=== PATIENT | male | born 1970 | race Caucasian/White ===

== ENCOUNTER 2017-07-21 00:25 | Inpatient (IN) | payer OTHER ==
[~2017-07-21] VITALS: Ht 170.2 cm; Wt 142.6 kg
[2017-07-21] VITALS (8 sets, daily range): BP systolic 131–162; BP diastolic 56–90
[~2017-07-21 00:25] MED LIST: LEVAQUIN750 MG PO
[2017-07-21 00:43] LABS: HEMOGLOBIN 15.7 G/DL (12.5-16.6); MCH 29.8 PG (29.0-34.0); MCHC 34.1 G/DL (30.0-36.0); MCV 87.3 FL (86-99); PLATELET COUNT 173 K/uL (156-360); RBC DIS.WIDTH-CV 12.9 % (11.8-14.6); RBC DIS.WIDTH-SD 40.2 % (39-53); RED BLOOD COUNT 5.27 M/uL (4.00-5.50)
[2017-07-21 00:53] LABS: CHLORIDE 100 mEq/L (99-109); SODIUM 138 mEq/L (136-147)
[2017-07-21 00:55] LABS: GLUCOSE 221 mg/dL (70-99)
[2017-07-21 00:59] LABS: CREATININE 1.2 mg/dL (0.6-1.3); GFR ESTIMATE (CALCULATED) > 59 mL/min/ (58.99-99999)
[2017-07-21 01:00] LABS: UREA NITROGEN (BUN) 15 mg/dL (9-23)
[2017-07-21 01:04] LABS: TROP-I INTERPRETATION NEGATIVE; TROPONIN-I 0.19 ng/mL (0.0-0.30)
[2017-07-21 04:02] LABS: ALBUMIN 3.9 g/dL (3.2-4.8)
[2017-07-21 04:05] LABS: TOTAL PROTEIN 7.4 g/dL (6.4-8.3)
[2017-07-21 04:07] LABS: TOTAL BILIRUBIN 0.4 mg/dL (0.0-1.0)
[2017-07-21 04:08] LABS: ALKALINE PHOSPHATASE 67 IU/L (3-129)
[2017-07-21 04:10] LABS: AST (GOT) 31 IU/L (2-34); D-DIMER ELISA < 150.00 ng/mLDDU (<230)
[2017-07-21 04:11] LABS: ALT (GPT) 44 IU/L (3-49); DIRECT BILIRUBIN 0.1 mg/dL (0.0-0.3); PTT 34.2 SEC (25-37)
[2017-07-21 04:12] LABS: LIPASE 32 U/L (1.0-51.0)
[2017-07-21 07:32] LABS: HEMATOCRIT 43.2 % (38.0-50.0); HEMOGLOBIN 14.6 G/DL (12.5-16.6); MCH 29.6 PG (29.0-34.0); MCHC 33.8 G/DL (30.0-36.0); MCV 87.4 FL (86-99); PLATELET COUNT 170 K/uL (156-360); RBC DIS.WIDTH-SD 40.9 % (39-53); RED BLOOD COUNT 4.94 M/uL (4.00-5.50); WHITE BLOOD COUNT 7.2 K/uL (4.1-10.2)
[2017-07-21 08:03] LABS: CHLORIDE 102 MEQ/L (99-109); GFR ESTIMATE (CALCULATED) > 59 mL/min/ (58.99-99999); GLUCOSE 161 mg/dL (70-99); SODIUM 136 MEQ/L (136-147); TROP-I INTERPRETATION POSITIVE; TROPONIN-I 1.42 ng/mL (0.0-0.30); UREA NITROGEN (BUN) 15 mg/dL (9-23)
[2017-07-21 08:08] LABS: POTASSIUM 5.1 MEQ/L (3.7-5.4)
[2017-07-21] MEDS ORDERED: TRESIBA FL100 UNIT/1 SC (08:14)
[2017-07-21] MEDS ORDERED: GLUCOPHAGE1000 MG PO (08:15)
[2017-07-21] MEDS ORDERED: LOTENSIN10 MG PO (08:15)
[2017-07-21] MEDS ORDERED: CRESTOR20 MG PO (08:15)
[2017-07-21 13:10] LABS: TROP-I INTERPRETATION POSITIVE
[2017-07-21 13:12] LABS: TROPONIN-I 2.92 ng/mL (0.0-0.30)
[2017-07-21 19:03] LABS: TROP-I INTERPRETATION POSITIVE
[2017-07-22] VITALS (7 sets, daily range): BP systolic 111–158; BP diastolic 51–86
[2017-07-23 03:00] VITALS: BP 106/41
[2017-07-23 05:54] LABS: HEMATOCRIT 42.1 % (38.0-50.0); MCH 29.2 PG (29.0-34.0); MCHC 33.3 G/DL (30.0-36.0); MCV 87.7 FL (86-99); PLATELET COUNT 165 K/uL (156-360); RBC DIS.WIDTH-CV 13.2 % (11.8-14.6); RBC DIS.WIDTH-SD 42.1 % (39-53); WHITE BLOOD COUNT 6.9 K/uL (4.1-10.2)
[2017-07-23 06:30] LABS: CHLORIDE 102 MEQ/L (99-109); CREATININE 0.9 MG/DL (0.6-1.3); GFR ESTIMATE (CALCULATED) > 59 mL/min/ (58.99-99999); GLUCOSE 151 mg/dL (70-99); MAGNESIUM 1.9 mg/dl (1.3-2.7); SODIUM 136 MEQ/L (136-147); UREA NITROGEN (BUN) 14 mg/dL (9-23)
[2017-07-23 07:07] VITALS: BP 148/79
[2017-07-23 11:19] VITALS: BP 150/71
[2017-07-23 12:59] VITALS: BP 135/67
[2017-07-23] MEDS ORDERED: NITROSTAT0.4 MG SL (14:19)
[2017-07-23] MEDS ORDERED: LOPRESSOR25 MG PO (14:20)
[2017-07-23] MEDS ORDERED: BRILINTA90 MG PO (14:20)
[2017-07-23] MEDS ORDERED: ATORVASTATIN CA40 MG PO (14:20)
[2017-07-23] MEDS ORDERED: ASPIR-LOW81 MG PO (14:20)
== END 2017-07-23 15:53 | disposition home or self-care (01) | DRG 247 ==
LOC: EME 00:25 → EDOF 03:19 → 4EAST 03:19 → ENRESERV 03:23 → 4WEST 14:50 → ENRESERV 17:18 → 4EAST 19:10 → ENPENDDIS 07-23 → 4EAST 07-23 15:53
PROVIDERS: Hospitalist; Internal Medicine
DX: I21.4 Non-ST elevation (NSTEMI) myocardial infarction (principal); I25.110 Atherosclerotic heart disease of native coronary artery with unstable angina pectoris; I25.82 Chronic total occlusion of coronary artery; I10 Essential (primary) hypertension; E11.65 Type 2 diabetes mellitus with hyperglycemia; E66.01 Morbid (severe) obesity due to excess calories; Z68.42 Body mass index [BMI] 45.0-49.9, adult; E78.5 Hyperlipidemia, unspecified; K21.9 Gastro-esophageal reflux disease without esophagitis; R11.0 Nausea; Z82.49 Family history of ischemic heart disease and other diseases of the circulatory system; Z87.891 Personal history of nicotine dependence
CPT/HCPCS: 71046; 80048; 80048 91; 80076; 82948; 83690; 83735; 84484; 85027; 85347; 85379; 85610; 85730; 87641; 93005; 93306; C1725; C1769; C1874; C1887; J1644; J1650; J1815; J2250; J3010; J7030

== ENCOUNTER 2017-07-25 01:29 | Observation (INO) | payer OTHER ==
[~2017-07-25] VITALS: Ht 172.7 cm; Wt 137.7 kg
[~2017-07-25 01:29] MED LIST changes: +ASPIR-LOW81 MG PO; +ATORVASTATIN CA40 MG PO; +BRILINTA90 MG PO; +CRESTOR20 MG PO; +GLUCOPHAGE1000 MG PO; +LOPRESSOR25 MG PO; +LOTENSIN10 MG PO; +NITROSTAT0.4 MG SL; +TRESIBA FL100 UNIT/1 SC
[2017-07-25 02:15] LABS: HEMATOCRIT 45.2 % (38.0-50.0); HEMOGLOBIN 15.3 G/DL (12.5-16.6); MCH 29.2 PG (29.0-34.0); MCHC 33.8 G/DL (30.0-36.0); MCV 86.3 FL (86-99); PLATELET COUNT 178 K/uL (156-360); RBC DIS.WIDTH-CV 13.2 % (11.8-14.6); RBC DIS.WIDTH-SD 40.6 % (39-53); RED BLOOD COUNT 5.24 M/uL (4.00-5.50)
[2017-07-25 02:24] LABS: CHLORIDE 103 mEq/L (99-109); POTASSIUM 4.3 mEq/L (3.7-5.4); SODIUM 134 mEq/L (136-147)
[2017-07-25 02:26] LABS: GLUCOSE 194 mg/dL (70-99)
[2017-07-25 02:30] LABS: CREATININE 1.1 mg/dL (0.6-1.3); GFR ESTIMATE (CALCULATED) > 59 mL/min/ (58.99-99999)
[2017-07-25 02:31] LABS: UREA NITROGEN (BUN) 14 mg/dL (9-23)
[2017-07-25 02:37] LABS: TROP-I INTERPRETATION POSITIVE
[2017-07-25 02:45] LABS: TROPONIN-I 1.06 ng/mL (0.0-0.30)
[2017-07-25 05:12] LABS: TOTAL PROTEIN 7.6 g/dL (6.4-8.3)
[2017-07-25 05:15] LABS: ALKALINE PHOSPHATASE 67 IU/L (3-129); TOTAL BILIRUBIN 0.7 mg/dL (0.0-1.0)
[2017-07-25 05:17] LABS: AST (GOT) 27 IU/L (2-34); DIRECT BILIRUBIN 0.3 mg/dL (0.0-0.3)
[2017-07-25 05:18] LABS: TROP-I INTERPRETATION POSITIVE
[2017-07-25 05:18] LABS: ALT (GPT) 40 IU/L (3-49); LIPASE 44 U/L (1.0-51.0)
[2017-07-25 05:49] LABS: TROPONIN-I 1.04 ng/mL (0.0-0.30)
[2017-07-25 06:16] LABS: INTER. NORMALIZED RATIO 1.2
[2017-07-25 06:18] LABS: PTT 32.4 SEC (25-37)
[2017-07-25] MEDS ORDERED: LISINOPRIL5 MG PO (11:04)
[2017-07-25 12:39] VITALS: BP 112/64
== END 2017-07-25 12:46 | disposition home or self-care (01) ==
LOC: EME 01:29 → ENRESERV 08:21 → CANRESERV 08:21 → EDOF 08:31 → ENRESERV 08:32 → CANRESERV 08:36 → ENRESERV 08:36 → CANRESERV 08:39 → ENRESERV 08:48 → CANRESERV 08:48 → EDOF 12:46
PROVIDERS: Emergency Medicine; Internal Medicine
DX: R07.9 Chest pain, unspecified (principal); R10.10 Upper abdominal pain, unspecified; E11.9 Type 2 diabetes mellitus without complications; E78.5 Hyperlipidemia, unspecified; I10 Essential (primary) hypertension; I25.10 Atherosclerotic heart disease of native coronary artery without angina pectoris; I21.4 Non-ST elevation (NSTEMI) myocardial infarction; Z95.5 Presence of coronary angioplasty implant and graft; Z87.891 Personal history of nicotine dependence; Z79.84 Long term (current) use of oral hypoglycemic drugs; Z82.49 Family history of ischemic heart disease and other diseases of the circulatory system
CPT/HCPCS: 71046; 80048; 80076; 82948; 83690; 84484; 85027; 85610; 85730; 93005; 99281; 99285; G0378; J1650